=== PATIENT | female | born 1945 | race Caucasian/White ===

== ENCOUNTER 2019-05-24 02:40 | Inpatient (IN) | payer MEDICARE, OTHER, BC ==
[2019-05-24 05:15] LABS: ADD MAN DIFF? NO
[2019-05-24 05:17] LABS: WHITE BLOOD COUNT 9.1 10^3/ul (4.8-10.8)
[2019-05-24 05:17] LABS: BASOPHIL # 0.1 10^3/ul (0.0-0.1); BASOPHILS % 0.7 % (0.0-2.0); EOSINOPHILS # 0.1 10^3/ul (0.0-0.5); LYMPHOCYTES # 1.2 10^3/ul (0.8-2.9); LYMPHOCYTES % 13.4 % (15.0-51.0); MEAN CORPUSCULAR HEMOGLOBIN 31.6 pg (29.0-33.0); MEAN CORPUSCULAR HGB CONC 32.5 g/dl (32.0-37.0); MEAN CORPUSCULAR VOLUME 97.1 fl (82.0-101.0); MEAN PLATELET VOLUME 9.7 fl (7.4-10.4); MONOCYTE # 0.8 10^3/ul (0.3-0.9); MONOCYTES % 8.7 % (0.0-11.0); NEUTROPHIL # 6.9 10^3/ul (1.6-7.5); PLATELET COUNT 154 10^3/UL (140-415); RED BLOOD COUNT 4.12 10^6/ul (4.20-5.40); RED CELL DISTRIBUTION WIDTH 13.1 % (11.5-14.5)
[2019-05-24 05:38] LABS: ANION GAP 7 (5-13); BLOOD UREA NITROGEN 19 mg/dl (7-20); CALCIUM 9.3 mg/dl (8.4-10.2); CARBON DIOXIDE 30 mmol/L (21-31); CHLORIDE 103 mmol/L (97-110); CREATININE 0.83 mg/dl (0.44-1.00); GLUCOSE 116 mg/dl (70-220); POTASSIUM 3.7 mmol/L (3.5-5.1); SODIUM 140 mmol/L (135-144)
[2019-05-24 05:40] LABS: PROTIME 13.3 Sec (11.9-14.9)
[2019-05-24 05:41] LABS: PARTIAL THROMBOPLASTIN TIME 24.6 Sec (23.0-35.0)
[2019-05-24 05:50] LABS: B-TYPE NATRIURETIC PEPTIDE 611 PG/ML (0-125); TROPONIN-I 0.015 ng/ml (0.000-0.120)
[2019-05-24] MEDS: HYDROCODONE/APAP (5/325) TAB PO ×2 (06:27→14:29)
[2019-05-24] MEDS: ENOXAPARIN 60 MG/0.6 ML SYG SC (06:27)
[2019-05-24] MEDS ORDERED: NITROGLYCERIN (SL) 0.4 MG TAB SL (10:00)
[2019-05-24] MEDS ORDERED: NA PHOSPHATE/BIPHOS 133 ML ENEMA PR (10:00)
[2019-05-24] MEDS ORDERED: DOCUSATE SODIUM 100 MG CAP PO (10:00)
[2019-05-24] MEDS ORDERED: LORAZEPAM 0.5 MG TAB PO (10:00)
[2019-05-24] MEDS ORDERED: ZOLPIDEM 5 MG TAB PO (10:00)
[2019-05-24] MEDS ORDERED: NACL 0.9% 3 ML SYG IV (10:00)
[2019-05-24 10:30] LABS: IRON 35 ug/dl (35-150)
[2019-05-24] MEDS: FUROSEMIDE 40 MG INJ IV ×2 (10:34→10:36)
[2019-05-24] MEDS: DIPHTH/TET/ACEL PERTUSS (ADULT) 0.5 ML VIAL IM* (10:35)
[2019-05-24 10:39] LABS: % IRON SATURATION 16 % SAT (22-52); TOTAL IRON BINDING CAPACITY 225 ug/dl (241-421)
[2019-05-24] MEDS: SPIRONOLACTONE 25 MG TAB PO (10:50)
[2019-05-24] MEDS: PNEUMOC 13-VAL CONJ-DIP CRM/PF 0.5 ML SYR IM* (10:52)
[2019-05-24 12:12] LABS: HEPATITIS B SURFACE ANTIGEN NEGATIVE (NEGATIVE)
[2019-05-24 12:29] LABS: HEPATITIS C VIRAL ANTIBODY NEGATIVE (NEGATIVE)
[2019-05-24] MEDS ORDERED: METOPROLOL 5 MG INJ IV (14:00)
[2019-05-24] MEDS: DIGOXIN 500 MCG INJ IV (14:31)
[2019-05-24] MEDS: FUROSEMIDE 40 MG TAB PO (17:41)
[2019-05-24 18:54] LABS: TROPONIN-I 0.019 ng/ml (0.000-0.120)
[2019-05-24] MEDS: FAMOTIDINE 20 MG TAB PO (21:01)
[2019-05-24] MEDS: FLUOXETINE 20 MG CAP PO (21:01)
[2019-05-24] MEDS: APIXABAN 5 MG TABLET PO (21:01)
[2019-05-24] MEDS: LISINOPRIL 5 MG TAB PO (21:02)
[2019-05-25 01:24] LABS: TROPONIN-I < 0.012 ng/ml (0.000-0.120)
[2019-05-25] MEDS: HYDROCODONE/APAP (5/325) TAB PO (01:37)
[2019-05-25 06:24] LABS: ADD MAN DIFF? NO
[2019-05-25 06:36] LABS: WHITE BLOOD COUNT 8.3 10^3/ul (4.8-10.8)
[2019-05-25 06:36] LABS: BASOPHIL # 0.1 10^3/ul (0.0-0.1); BASOPHILS % 0.6 % (0.0-2.0); EOSINOPHILS # 0.1 10^3/ul (0.0-0.5); EOSINOPHILS % 1.1 % (0.0-7.0); HEMATOCRIT 36.7 % (37.0-47.0); HEMOGLOBIN 11.9 g/dl (12.0-16.0); LYMPHOCYTES # 1.4 10^3/ul (0.8-2.9); LYMPHOCYTES % 16.9 % (15.0-51.0); MEAN CORPUSCULAR HEMOGLOBIN 31.3 pg (29.0-33.0); MEAN CORPUSCULAR HGB CONC 32.4 g/dl (32.0-37.0); MEAN CORPUSCULAR VOLUME 96.6 fl (82.0-101.0); MEAN PLATELET VOLUME 9.9 fl (7.4-10.4); MONOCYTE # 0.9 10^3/ul (0.3-0.9); NEUTROPHIL # 5.8 10^3/ul (1.6-7.5); PLATELET COUNT 149 10^3/UL (140-415); RED CELL DISTRIBUTION WIDTH 13.1 % (11.5-14.5)
[2019-05-25 06:57] LABS: ALANINE AMINOTRANSFERASE 24 IU/L (13-69); ALBUMIN 3.2 g/dl (3.3-4.9); ALKALINE PHOSPHATASE 74 IU/L (42-121); ANION GAP 4 (5-13); ASPARTATE AMINO TRANSFERASE 18 IU/L (15-46); BLOOD UREA NITROGEN 23 mg/dl (7-20); CALCIUM 8.5 mg/dl (8.4-10.2); CARBON DIOXIDE 36 mmol/L (21-31); CHLORIDE 96 mmol/L (97-110); CHOL/HDL RATIO 2.7 RATIO; CHOLESTEROL 160 mg/dl (100-200); CREATININE 0.93 mg/dl (0.44-1.00); GLUCOSE 93 mg/dl (70-220); HDL CHOLESTEROL 58 mg/dl (33-92); LDL CHOLESTEROL,CALCULATED 91 mg/dl; MAGNESIUM 1.5 mg/dl (1.7-2.5); POTASSIUM 3.8 mmol/L (3.5-5.1); SODIUM 136 mmol/L (135-144); TOTAL PROTEIN 6.1 g/dl (6.1-8.1); TRIGLYCERIDES 57 mg/dl (0-149)
[2019-05-25] MEDS ORDERED: ASPIRIN (EC) 325 MG TAB PO (09:00)
[2019-05-25] MEDS ORDERED: FUROSEMIDE 40 MG TAB PO (09:00)
[2019-05-25] MEDS: ASPIRIN (EC) 81 MG TAB PO (09:04)
[2019-05-25] MEDS: APIXABAN 5 MG TABLET PO ×2 (09:04→20:47)
[2019-05-25] MEDS: SPIRONOLACTONE 25 MG TAB PO (09:04)
[2019-05-25] MEDS: FAMOTIDINE 20 MG TAB PO ×2 (09:04→20:47)
[2019-05-25] MEDS: LISINOPRIL 5 MG TAB PO ×2 (09:05→20:41)
[2019-05-25] MEDS: FUROSEMIDE 40 MG TAB PO (09:05)
[2019-05-25] MEDS: MAGNESIUM SULFATE 4 GM/100 ML 100 ML IVPB (14:39)
[2019-05-25] MEDS: FUROSEMIDE 40 MG INJ IV (14:39)
[2019-05-25] MEDS: FLUOXETINE 20 MG CAP PO (20:47)
[2019-05-25] MEDS: ALBUMIN HUMAN 25% 100 ML IV (21:53)
[2019-05-25] MEDS: SOD FERRIC GLUC COMPLX 125 MG in SOD CHLORIDE 0.9% 100 ML IVPB (23:00)
[2019-05-26 06:09] LABS: ADD MAN DIFF? NO
[2019-05-26 06:28] LABS: BASOPHIL # 0.1 10^3/ul (0.0-0.1); BASOPHILS % 0.9 % (0.0-2.0); EOSINOPHILS # 0.2 10^3/ul (0.0-0.5); EOSINOPHILS % 2.4 % (0.0-7.0); HEMOGLOBIN 11.8 g/dl (12.0-16.0); LYMPHOCYTES # 1.3 10^3/ul (0.8-2.9); LYMPHOCYTES % 20.2 % (15.0-51.0); MEAN CORPUSCULAR HEMOGLOBIN 31.4 pg (29.0-33.0); MEAN CORPUSCULAR HGB CONC 32.8 g/dl (32.0-37.0); MEAN CORPUSCULAR VOLUME 95.7 fl (82.0-101.0); MONOCYTE # 0.6 10^3/ul (0.3-0.9); MONOCYTES % 8.9 % (0.0-11.0); NEUTROPHIL # 4.5 10^3/ul (1.6-7.5); NEUTROPHILS % 67.3 % (39.0-77.0); PLATELET COUNT 152 10^3/UL (140-415); RED BLOOD COUNT 3.76 10^6/ul (4.20-5.40); RED CELL DISTRIBUTION WIDTH 12.8 % (11.5-14.5)
[2019-05-26 06:28] LABS: WHITE BLOOD COUNT 6.7 10^3/ul (4.8-10.8)
[2019-05-26 06:54] LABS: ALANINE AMINOTRANSFERASE 12 IU/L (13-69); ALBUMIN 3.4 g/dl (3.3-4.9); ALBUMIN/GLOBULIN RATIO 1.09; ALKALINE PHOSPHATASE 62 IU/L (42-121); ANION GAP 4 (5-13); ASPARTATE AMINO TRANSFERASE 17 IU/L (15-46); BILIRUBIN,INDIRECT 1.3 mg/dl (0-1.1); BILIRUBIN,TOTAL 1.3 mg/dl (0.2-1.3); BLOOD UREA NITROGEN 27 mg/dl (7-20); CALCIUM 8.6 mg/dl (8.4-10.2); CARBON DIOXIDE 36 mmol/L (21-31); CHLORIDE 97 mmol/L (97-110); CREATININE 1.02 mg/dl (0.44-1.00); GLUCOSE 105 mg/dl (70-220); POTASSIUM 3.5 mmol/L (3.5-5.1); SODIUM 137 mmol/L (135-144); TOTAL PROTEIN 6.5 g/dl (6.1-8.1)
[2019-05-26 07:09] LABS: MAGNESIUM 2.3 mg/dl (1.7-2.5)
[2019-05-26] MEDS: ASPIRIN (EC) 81 MG TAB PO (09:02)
[2019-05-26] MEDS: APIXABAN 5 MG TABLET PO ×2 (09:02→21:52)
[2019-05-26] MEDS: FAMOTIDINE 20 MG TAB PO ×2 (09:03→21:52)
[2019-05-26] MEDS: FUROSEMIDE 40 MG TAB PO (09:03)
[2019-05-26] MEDS: SPIRONOLACTONE 25 MG TAB PO (09:04)
[2019-05-26] MEDS: HYDROCODONE/APAP (5/325) TAB PO ×2 (09:57→23:56)
[2019-05-26] MEDS: ONDANSETRON 4 MG TAB PO (09:57)
[2019-05-26] MEDS: LISINOPRIL 5 MG TAB PO (09:58)
[2019-05-26] MEDS ORDERED: FLUOXETINE 10 MG CAP PO (12:30)
[2019-05-26] MEDS: FLUOXETINE 20 MG CAP PO (21:52)
[2019-05-27] MEDS: ACETAMINOPHEN 325 MG TAB PO (05:27)
[2019-05-27] MEDS: LEVOTHYROXINE 50 MCG TAB PO (06:18)
[2019-05-27] MEDS: HYDROCODONE/APAP (5/325) TAB PO (09:00)
[2019-05-27] MEDS: SPIRONOLACTONE 25 MG TAB PO (09:01)
[2019-05-27] MEDS: FUROSEMIDE 40 MG TAB PO (09:01)
[2019-05-27] MEDS: APIXABAN 5 MG TABLET PO (09:02)
[2019-05-27] MEDS: ASPIRIN (EC) 81 MG TAB PO (09:02)
[2019-05-27] MEDS: FAMOTIDINE 20 MG TAB PO (09:02)
[2019-05-27] MEDS: LISINOPRIL 5 MG TAB PO (09:02)
[2019-05-27] MEDS ORDERED: NYSTATIN 30 GM POWDER BTL TOP (15:30)
== END 2019-05-27 16:02 | disposition home or self-care (01) | DRG 292 ==
LOC: E/R 02:40 → PP2 06:03
DX: I11.0 Hypertensive heart disease with heart failure (principal); I82.542 Chronic embolism and thrombosis of left tibial vein; I50.23 Acute on chronic systolic (congestive) heart failure; I42.9 Cardiomyopathy, unspecified; I48.2 Chronic atrial fibrillation; I34.0 Nonrheumatic mitral (valve) insufficiency; E03.9 Hypothyroidism, unspecified; F32.9 Major depressive disorder, single episode, unspecified; K02.9 Dental caries, unspecified; E66.9 Obesity, unspecified; Z68.33 Body mass index [BMI] 33.0-33.9, adult; Z79.82 Long term (current) use of aspirin; Z79.02 Long term (current) use of antithrombotics/antiplatelets; Z59.0 Homelessness; Z87.11 Personal history of peptic ulcer disease
CPT/HCPCS: 36415; 71045; 71046; 80048; 80053; 80061; 83540; 83735; 83880; 84443; 84484; 85025; 85610; 85730; 86803; 87081; 87340; 90670; 90715; 93005; 93306; 93970; 99217; 99285-25